=== PATIENT | female | born 1960 | race Caucasian/White ===

== ENCOUNTER 2018-01-10 13:41 | Outpatient (RCR) | payer OTHER ==
[~2018-01-10 13:41] MED LIST: ALPRAZOLAM; CELEBREX 200MG200 MG PO; COLACE100 MG PO; DILAUDID4 MG PO; FENTANYL 75MCG; GABAPENTIN100 M1 PO; PRENATAL 1 PLUS1 TAB PO; RESTORIL15 MG PO; WELLBUTRIN PO; ZYRTEC 10MG10 MG PO
== END 2018-01-13 09:17 | disposition home or self-care (01) ==
LOC: WSOH 13:41
DX: S40.021A Contusion of right upper arm, initial encounter (principal); S50.11XA Contusion of right forearm, initial encounter; S30.1XXA Contusion of abdominal wall, initial encounter; F17.210 Nicotine dependence, cigarettes, uncomplicated; Y04.2XXA Assault by strike against or bumped into by another person, initial encounter; Y92.219 Unspecified school as the place of occurrence of the external cause; Y99.0 Civilian activity done for income or pay